=== PATIENT | male | born 1945 | race Caucasian/White ===

== ENCOUNTER 2017-11-07 05:30 | Day surgery (SDC) | payer MEDICARE, OTHER ==
[2017-11-07] MEDS ORDERED: TROP 1%/CYCLOPEN 1%/PHENYL 2% DROPS ONE (05:58)
[2017-11-07] MEDS ORDERED: PROPARACAINE 0.5% OPHTH SOL 15 ML BTTL ONE (05:58)
[2017-11-07] MEDS ORDERED: MIDAZOLAM INJ 2 MG/2 ML VIAL ONE (10:00)
[2017-11-07] MEDS ORDERED: PROPARACAINE 0.5% OPHTH SOL 15 ML BTTL LEFT_EYE ONE ×2 (10:03→10:23)
[2017-11-07] MEDS ORDERED: TOBRAMYCIN SULF 0.3 % OPHT SOL 1 DROP LEFT_EYE ONE ×2 (10:23→10:31)
[2017-11-07] MEDS ORDERED: DEXAMETHASONE 0.1% OPHTH SOL 1 DROP LEFT_EYE ONE ×2 (10:24→10:31)
[2017-11-07] MEDS ORDERED: BRIMONIDINE 0.2% OPHTH DROPS LEFT_EYE ONE ×2 (10:24→10:31)
== END 2017-11-07 11:00 | disposition home or self-care (01) ==
LOC: AMB 05:30
PROVIDERS: ATTEND Ophthalmology
DX: H25.12 Age-related nuclear cataract, left eye (principal); I10 Essential (primary) hypertension; K21.9 Gastro-esophageal reflux disease without esophagitis; E66.9 Obesity, unspecified; I69.334 Monoplegia of upper limb following cerebral infarction affecting left non-dominant side
CPT/HCPCS: 00142; 66984; J2250

== ENCOUNTER 2017-11-21 06:04 | Day surgery (SDC) | payer MEDICARE, OTHER ==
[~2017-11-21 06:04] MED LIST: PROPARACAINE 0.5% OPHTH SOL 15 ML BTTL ONE; TROP 1%/CYCLOPEN 1%/PHENYL 2% DROPS ONE
[2017-11-21] MEDS ORDERED: MIDAZOLAM INJ 2 MG/2 ML VIAL ONE (08:30)
[2017-11-21] MEDS ORDERED: PROPARACAINE 0.5% OPHTH SOL 15 ML BTTL RIGHT_EYE ONE (08:35)
[2017-11-21] MEDS ORDERED: DEXAMETHASONE 0.1% OPHTH SOL 1 DROP RIGHT_EYE ONE ×3 (08:43→09:03)
[2017-11-21] MEDS ORDERED: LIDOCAINE 1% PF 2 ML AMP INJ ONE ×2 (08:43→08:53)
[2017-11-21] MEDS ORDERED: BRIMONIDINE 0.2% OPHTH DROPS RIGHT_EYE ONE ×3 (08:43→09:03)
[2017-11-21] MEDS ORDERED: TOBRAMYCIN SULF 0.3 % OPHT SOL 1 DROP RIGHT_EYE ONE ×3 (08:43→09:03)
== END 2017-11-21 09:45 | disposition home or self-care (01) ==
LOC: AMB 06:04
PROVIDERS: ATTEND Ophthalmology
DX: H25.11 Age-related nuclear cataract, right eye (principal); I10 Essential (primary) hypertension; I25.10 Atherosclerotic heart disease of native coronary artery without angina pectoris; K21.9 Gastro-esophageal reflux disease without esophagitis; D75.1 Secondary polycythemia; E66.9 Obesity, unspecified; Z79.82 Long term (current) use of aspirin; Z79.899 Other long term (current) drug therapy
CPT/HCPCS: 66984; J2250

== ENCOUNTER → 2018-12-06 | Outpatient (CLI) | payer MEDICARE, OTHER ==
--- NOTE | 2018-12-07 10:31 | CT ---
EXAM DESCRIPTION: Abdomen/Pelvis w/o Contrast: Computed Tomography. CLINICAL HISTORY: 73 years Male KIDNEY STONE COMPARISON: None. TECHNIQUE: Spiral-axial scans 2.5 x 2.5 mm intervals through the abdomen and pelvis without oral or IV contrast. Coronal and sagittal 2.0 mm reconstructions. Total Exam DLP: 1479.30 mGy-cm. This exam was performed according to our departmental CT dose-optimization program which includes automated exposure control, adjustment of the mA and/or kV according to patient size and/or use of iterative reconstruction technique; to reduce radiation dose to as low as reasonably achievable (ALARA). FINDINGS: Lung bases and pleura: Coronary artery calcifications. Negative lung bases. Liver, stomach, spleen, and adrenal glands: Suture material indicating Gastro jejunal anastomosis. No soft tissue mass. Gastric wall is thickened. Noncontrast appearance of the liver, adrenal glands unremarkable. Splenic calcifications near the hilum. Left hemidiaphragm with jejunum, splenic flexure of the colon, and spleen elevated into the base of the right hemithorax. Pancreas, Gallbladder, and Ducts: Surgical clips in the gallbladder fossa with no fluid. Duct not dilated. Fatty infiltration of the pancreas with no mass. Kidneys and Ureters: Linear density in the left renal fossa with no renal tissue visualized. No fluid or mass. No radiodense stones in the right kidney. 1.9 cm cyst on the lower pole. 1.2 cm cyst with smooth margins but density +55. Minimal pararenal stranding with no hydronephrosis. Distal ureter slightly obscured by the morning artifact from right total hip arthroplasty but not distended. Mesentery: No stranding, free fluid, or fascial thickening. Aorta: Atherosclerotic calcification moderate including the ostia of the major branch vessels. Outer caliber unremarkable. Also atherosclerotic calcifications in the proximal left common iliac artery. Small Bowel: Suture material around if clinically dilated segment of mid jejunum in the left lower quadrant of the abdomen with air-fluid level. Fecalization proximal and distal to this segment. No inflammatory changes or soft tissue mass in the surrounding fat. Normal caliber of the remaining segments. Terminal Ileum/Cecum: Normal caliber. Fecal material in the cecum. Inferior suture material. Appendix not seen. No surrounding fatty inflammatory changes. Abdominal Wall/Back Soft Tissues: Atrophic abdominal midline raphe. Hernia repair tissue or scarring in the midline around the umbilicus containing suture and/or calcifications. Superior to this is a diffuse mesenteric hernia containing mostly mesenteric fat except for a short segment of gas-filled transverse colon that protrudes through the hernia. This defect is approximately 2.8 cm transverse and 1.8 cm longitudinal. No bowel obstruction. No wall thickening. No fluid. Simple fatty mesenteric hernia to the right of the hernia containing colon. The neck of the second hernia is 1.9 x 1.7 cm. Larger hernia in the midline containing fat only beginning below the xiphoid process extending almost to the level of the hernias described above. No edema or inflammatory changes or fluid in this more superior larger hernia. The neck measures 6.7 x 4.5 cm. Bilateral fatty inguinal hernias larger on the right not containing bowel. Colon: Mostly fecal material in the colon along with gas but no obstruction. Redundant sigmoid colon containing gas fecal material. Pelvic Organs: Urinary bladder contracted no radiodense stones. Prostate gland impressing on the base of the bladder with central calcifications and calcifications in the midline abutting the prostatic urethra. Transverse measurements for 4.6 x 3.1 cm. No fluid in the anterior peritoneal reflection. Spine and Bony Pelvis: Spondylosis of the included thoracic spine. Levoscoliosis lumbar spine with minimal spondylosis. Right total hip arthroplasty. Hypertrophy of the superior lateral left acetabular facet with cystic changes and joint space narrowing. Fibrocystic changes in the opposing lateral left femoral head. IMPRESSION: 1. Simple cyst in the lower pole of the right kidney with a complex cyst, proteinaceous cyst, or solid mass projecting from the upper pole. Correlate with clinical history and consider follow-up renal ultrasound. Left kidney and ureter not present. Small soft tissue density in the left renal fossa. No fluid or surgical clips. 2. Diffuse atrophy of the midline raphe of the abdomen with subxiphoid fatty mesenteric hernia with a broad neck without complications. Smaller paracentral hernias supraumbilical with one containing mesenteric fat only in the hernia to the left of midline containing a loop of transverse colon. No complications in the colon. Diffuse irregular dense material in the midline more inferiorly in the region of the umbilicus with calcifications. 3. Prior gastrojejunal anastomosis with no complications. Thickening of the gastric wall, prior partial gastrectomy. Jejunojejunal anastomosis in the left lower quadrant is slightly distended but no obstruction or surrounding inflammatory changes. Fecalization in the efferent and afferent segments. 4. Pincer-type femoral acetabular impingement left hip with fibrocystic changes in the acetabulum and femoral head. Electronically signed by: Dominick Jimenez MD 12/07/2018 10:30 AM CDT
== END ==
LOC: CT 12:29
PROVIDERS: ATTEND Internal Medicine Nephrology
DX: N18.4 Chronic kidney disease, stage 4 (severe) (principal); N28.1 Cyst of kidney, acquired; K42.9 Umbilical hernia without obstruction or gangrene; K46.0 Unspecified abdominal hernia with obstruction, without gangrene; M25.852 Other specified joint disorders, left hip; M84.852 Other disorders of continuity of bone, left pelvic region and thigh; Z90.5 Acquired absence of kidney; Z90.6 Acquired absence of other parts of urinary tract; Z90.3 Acquired absence of stomach [part of]; Z98.0 Intestinal bypass and anastomosis status